=== PATIENT | female | born 1955 | race Caucasian/White ===

== ENCOUNTER → 2018-05-03 16:02 | Outpatient (CLI) | payer OTHER, SELFPAY ==
[2018-04-04 13:46] VITALS: BMI 27.4
--- NOTE | 2018-05-03 16:17 | BI_ITS ---
MAMMOGRAPHY - BILATERAL SCREENING REASON FOR EXAM: Female, 62 years old. Routine annual screening examination. PERTINENT HISTORY: Non-contributory. TECHNIQUE: Digital bilateral breast charity (3D mammographic acquisition) in the CC and MLO projections. 2-D mediolateral oblique (MLO) and craniocaudad (CC) views of both breasts were obtained. CAD: Full Field Digital Mammography with Computer Added Detection was performed. COMPARISON: Comparison is made with prior study dated November 17, 2016 and March 14, 2015. FINDINGS: Breast Composition: The breasts are heterogeneously dense, which may obscure small masses. There are no dominant masses or suspicious calcifications. Stable small bilateral axillary lymph nodes. No other significant abnormalities are identified. There has been no significant change since the prior study. BI/SCREENING MAMM (CAD), BILAT IMPRESSION: Stable bilateral screening mammogram. Yearly follow-up mammogram recommended. (A) ASSESSMENT CATEGORY: BIRADS Category 2: Benign. A letter regarding these results will be sent to the patient by the facility within 30 days. Approximately 10% of breast cancers are not detected by mammography. A normal mammogram should not delay biopsy of a clinically suspicious abnormality. [id number] Electronically Signed: Wenceslao Currie MD at 8:13 EST Tel [phone], Service support ,
== END ==
PROVIDERS: Family Provider Family Medicine; PCP Family Medicine; Referring Provider Nurse Practitioner Family; Visit Provider Nurse Practitioner Family
DX: Z12.31 Encounter for screening mammogram for malignant neoplasm of breast (principal)
CPT/HCPCS: 77063; 77067

== ENCOUNTER 2020-12-15 07:04 | Day surgery (SDC) | payer OTHER, SELFPAY ==
[2018-04-04 13:46] VITALS: BMI 27.4
--- NOTE | 2020-12-08 12:32 | EKG12_ITS ---
Test Reason : PREOP Blood Pressure : / mmHG Vent. Rate : 052 BPM Atrial Rate : 052 BPM P-R Int : 180 ms QRS Dur : 082 ms QT Int : 428 ms P-R-T Axes : 054 027 038 degrees QTc Int : 398 ms Sinus bradycardia Otherwise normal ECG Confirmed by ENOC ALLEN, NEO ([id number]), editorial specialist NAVARRO NIELSON ([id number]) on 12/09/2020 10:45:40 AM Referred By: Eloisa Curran Confirmed By:NEO STUBBS MD
[2020-12-08 13:47] LABS: Hematocrit 41.8 % (37-47); Hemoglobin 13.3 g/dL (12.0-15.0); Mean Corp Hgb Conc 31.8 g/dL (32-36); Mean Corpuscular Hgb 28.9 pg (27.0-32.0); Mean Corpuscular Volume 90.7 fL (81-99); Mean Platelet Vol. 9.9 fl (6.2-12.0); Platelet Count 217 K/mm3 (150-450); RBC Distribution Width CV 13.1 % (11.6-14.6); RBC Distribution Width SD 43.4 fl (35.1-43.9); Red Blood Count 4.61 M/mm3 (4.2-5.4); White Blood Count 6.6 K/mm3 (4.4-11.0)
[2020-12-08 13:54] LABS: Partial Thromboplast Time 27.5 Seconds (24.1-36.2)
[2020-12-08 14:22] LABS: Anion Gap 3 (5-15); BUN 16 mg/dL (7-18); BUN/Creat Ratio 21.7 RATIO (10-20); Calcium,Total 9.3 mg/dL (8.5-10.1); Chloride 105 mmol/L (98-107); Creatinine, Serum 0.74 mg/dL (0.55-1.02); EST Glomerular Filtration Rate 85 mL/min (>60); Est Glom Filt Rate - Afr Amer 102 mL/min (>60); Glucose 106 mg/dL (74-106); Sodium Level 141 mmol/L (136-145)
[2020-12-15] VITALS (11 sets, daily range): BP systolic 111–147; BP diastolic 63–85; PULSE 56–79; RESP 16–18; TEMP 36.3–37.2; O2SAT 95–100; BMI 52.7
[2020-12-15] MEDS: Lactated Ringers 1,000 ML 100 ML IV (07:25)
--- NOTE | 2020-12-15 08:19 | PCM.OPRPT ---
Problems Associated Problem List Diagnoses (1) Cystocele, midline: (2) Vaginal vault prolapse: Report of Operation Date of Procedure: 12/15/20 Pre-Operative Diagnosis: cystocele, vaginal vault prolapse Post-Operative Diagnosis: cystocele, no vault prolapse Surgery/Procedure Performed:: Anterior repair with dermis, cystoscopy with bilateral ureteral catheter insertion Surgeon: Eloisa Curran Type of Anesthesia: General Estimated Blood Loss (mL): 15cc Description of Procedure: The patient is a 65-year-old female who had previously undergone an abdominal sacrocolpopexy with anterior repair and hysterectomy. She presented with recurrence of her cystocele. We proceeded with evaluation with urodynamics and cystoscopy. She decided to proceed with surgical intervention after using a pessary for quite some time. Informed consent was obtained. Patient was taken the operating room and placed on the operating room table. Anesthesia monitored the head, neck, airway, IV access and vital signs throughout the case. Once anesthesia was appropriate ministered the patient was placed into dorsal lithotomy position was prepped and draped in usual sterile fashion. A 16 [place] Yeboah catheter was inserted and the bladder was drained. The anterior vaginal wall was isolated and injected submucosally 1% lidocaine with epinephrine for hydrostatic dissection and hemostatic control. A vertical midline incision approximately 2 cm in length was made. Sharp and blunt dissection was performed on either side all the way to the lateral aspect of the white line. Secondary to the patient's previous surgical intervention, most of this dissection was sharply performed secondary to scar tissue. Upon further evaluation the defect was determined to be distally located and the vaginal vault repair remained intact. There is a significant amount of scar tissue in the area of the vault secondary to the sacrocolpopexy. Dissection was performed around the area of the cystocele recurrence. Because of the scar tissue and difficulty in dissection, the Yeboah catheter was removed, the cystoscope was inserted through the urethra under direct visualization. The ureteral orifices were identified and gently intubated bilaterally with a Pollick catheter. Insertion was to 20 cm without difficulty bilaterally. At this time the cystoscope was removed and the Yeboah catheter was reinserted. The ureteral catheters were left to straight drain alongside the Yeboah. At this time the dissection of the cystocele defect was completed. A piece of dermis was cut to size and sutured in interrupted fashion using 2-0 PDS proximally and 3-0 PDS more distally at the area of the bladder neck. At this time, when the dermis was fully positioned and secured bilaterally, the Yeboah catheter was removed and the cystoscope was inserted. There were no injuries identified, no area of erythema or hemorrhage. Bilateral ureteral stents remained draining in good position with no evidence of ureteral injury. At this time the cystoscope was removed, the ureteral stents were removed, and the Yeboah catheter was reinserted. The midline incision was minimally trimmed and closed using running interlocking 2-0 Vicryl. Patient's vagina was then packed with estrogen cream and vaginal packing. She was awakened and taken to the recovery room in good condition. There were no complications during this procedure. Grafts/Implants Used: Dermis Complications none Admit VTE Documentation VTE Present on Admission: Yes VTE Mechan Device Prophylaxis: SCD's VTE Pharm Prophylaxis ordered?: Yes
[2020-12-15] MEDS: Cefazolin 2 GM in 0.9% Normal Saline 100 ML IV (08:23)
[2020-12-15] MEDS: Lidocaine 1% /Epi 1:100 (50ml) 50 ML VIAL (09:57)
[2020-12-15] MEDS: Estrogens,Conj. 1 Tube 1 DOSE (09:57)
--- NOTE | 2020-12-15 10:21 | PCM.DC ---
Discharge Instructions Diet Discharge Diet: No restrictions Activity Discharge Activity: May Shower May resume sexual activity in: 8 weeks Lifting Restrictions: 5 pounds Dressing / Incision Call your doctor if your incision/area has: Continuous Slow Oozing, Sudden Increased Bleeding, Increased Pain/ Swelling and Foul Smelling Discharge Call your doctor if you observe: Fever of 101 or Higher, Inability to urinate, Inability to have a bowel movement, Calf discomfort and Uncontrolled pain Additional Dressing/Incision Instructions:: No strenuous activity, no exercising, no sexual activity, no vacuuming, no driving for 2 weeks Follow Up Care Please Follow Up With: Eloisa Curran MD When: Call office for appointment Test Results: Test results from this visit will be discussed in further detail at your follow-up appointment, if applicable. Discharge Plan Admission Attending Provider: Eloisa Curran Primary Care Provider: Pili Alexis Primary Discharge Orders/Prescriptions Prescriptions: New hydrocodone-acetaminophen [hydrocodone-acetaminophen] 1 TABLET tablet 1 tab PO Q4H PRN PRN (Reason: Pain) 7 Days Qty: 20 RF: 0 cephalexin [cephalexin] 500 MG capsule 500 mg PO Q12 3 Days Qty: 6 RF: 0 Continued omega 0-gax-hem-fish oil [Fish Oil] 1,000 mg (120 mg-180 mg) capsule 1 cap PO DAILY RF: 0 cholecalciferol (vitamin D3) 2,000 unit capsule 2,000 unit PO DAILY RF: 0 melatonin 5 mg tablet 5 mg PO HS PRN (Reason: Sleep) RF: 0 zolpidem 6.25 mg tablet,ext release multiphase 6.25 mg PO QHS PRN (Reason: Sleep) RF: 0 levetiracetam 500 mg tablet 1,000 mg PO BID RF: 0 multivitamin Tablet 1 tab PO DAILY RF: 0 famotidine 20 mg tablet 20 mg PO DAILY RF: 0 estradiol 0.01 % (0.1 mg/gram) cream 1 applic VAGINAL .2-3 TIMES WEEKLY RF: 0 Referrals / Follow Up: Care Physician,No Primary [Primary Care Provider] - Disposition Disposition (needs filled in before D/C Order can be placed): Home, Self Care
[2020-12-15] MEDS: Dextrose 5%-Lactated Ringers 1,000 ML 100 ML IV ×2 (12:07→21:05)
[2020-12-15] MEDS: Cefazolin 1 GM/50 ML BAG IV ×2 (13:49→21:07)
[2020-12-15] MEDS: Docusate Sodium 100 MG Capsule PO (19:54)
[2020-12-15] MEDS: levETIRAcetam 1,000 MG Tablet 1000 MG PO (19:54)
[2020-12-16] VITALS: BP 143/79; PULSE 53; RESP 16; TEMP 36.6; O2SAT 95
[2020-12-16 00:03] VITALS: BMI 52.7
[2020-12-16] MEDS: Zolpidem Tartrate 5 MG Tablet PO (00:07)
[2020-12-16 04:15] VITALS: BP 131/73; PULSE 59; RESP 16; TEMP 36.8; O2SAT 98
[2020-12-16 04:18] VITALS: BMI 52.7
[2020-12-16] MEDS: Cefazolin 1 GM/50 ML BAG IV (05:11)
--- NOTE | 2020-12-16 07:22 | PCS.PANDOC ---
PANDEMIC DOCUMENTATION INITIATED: Date: 12/14/2020 Time: 190
--- NOTE | 2020-12-16 08:29 | PCM.PROGNOTE ---
Subjective Subjective Sitting up in bed, getting ready to eat breakfast. Doing well! No nausea or vomiting. Pain is minimal. No significant bleeding. Ambulating without difficulty. No issues overnight. Objective Data Objective Data Vital Signs: Vital Signs Temp Pulse Resp BP Pulse Ox 98.2 F 59 L 16 131/73 H 98 12/16/20 04:15 12/16/20 04:15 12/16/20 04:15 12/16/20 04:15 12/16/20 04:15 Oxygen Delivery Method Room Air Weight: 135 kg Body Mass Index (BMI) 52.7 Intake & Output: Intake and Output for Last 24 Hours 12/14/20 12/15/20 12/16/20 23:59 23:59 23:59 Intake Total 2956.67 / 2956.67 1106.67 / 1106.67 Output Total 3450 / 3450 1325 / 1325 Balance -493.33 / -493.33 -218.33 / -218.33 Lab / Micro Data Result Diagrams: 12/08/20 12:55 12/08/20 12:55 Physical Exam Const alert, oriented x3 and no apparent distress HEENT normocephalic, head/scalp atraumatic and hearing grossly normal bilaterally Eyes conjunctivae normal and no scleral icterus Neck supple General: trachea midline Chest Chest: symmetrical chest wall rise Resp normal air movement, no retractions and no use of accessory muscles Cardio regular rate GI soft to palpation, non-tender and non-distended external exam normal Narrative: solorzano draining clear yellow. solorzano and packing removed without issue or concern. Back/Spine no CVA tenderness Extremity normal to inspection Extremity Narrative: SCD's in place Skin no rashes or lesions noted, no wounds, skin turgor normal, no jaundice, no petechiae and no mottling Neuro oriented x3, CN's II-XII intact bilaterally and moves all extremities Psych mental status grossly normal, thought process normal and cooperative Assessment & Plan Assessment/Plan (1) Cystocele, midline: PLAN: trial of void and home today
[2020-12-16] MEDS: Dextrose 5%-Lactated Ringers 1,000 ML 100 ML IV (09:05)
[2020-12-16 09:41] VITALS: BP 109/55; PULSE 72; RESP 16; TEMP 36.7; O2SAT 100
[2020-12-16] MEDS: levETIRAcetam 1,000 MG Tablet 1000 MG PO (09:47)
[2020-12-16] MEDS: Famotidine 20 MG Tablet PO (09:47)
[2020-12-16] MEDS: Enoxaparin 40 MG/0.4 ML Syringe SC (09:47)
[2020-12-16] MEDS: Docusate Sodium 100 MG Capsule PO (09:50)
[2020-12-16 12:38] VITALS: BMI 52.7
--- NOTE | 2020-12-16 12:47 | PHA.DC.MC ---
Pharmacy Service has performed discharge medication reconciliation and counseling for this patient. 1. CEPHALEXIN 500MG PO Q12 X 3 DAYS 2. NORCO 5/325MG PO Q4H PRN PAIN X 7 DAYS The patient's discharge medication list was reviewed for discrepancies and discrepancies were resolved. Home Medications cholecalciferol (vitamin D3) 50 mcg (2,000 unit) capsule 2,000 unit PO DAILY 04/04/18 levetiracetam 500 mg tablet 1,000 mg PO BID tab 04/04/18 melatonin 5 mg tablet 5 mg PO HS PRN 04/04/18 omega 5-kii-okg-fish oil 1,000 mg (120 mg-180 mg) capsule 1 cap PO DAILY cap 04/04/18 zolpidem 6.25 mg tablet,extended release,multiphase 6.25 mg PO QHS PRN 04/04/18 estradiol 1 applic VAGINAL .2-3 TIMES WEEKLY 12/08/20 famotidine 20 mg PO DAILY 12/08/20 multivitamin 1 tab PO DAILY 12/08/20 cephalexin 500 mg PO Q12 3 Days #6 capsule 12/15/20 hydrocodone-acetaminophen 1 tab PO Q4H PRN PRN 7 Days #20 tablet 12/15/20 The patient was counseled on the following discharge medications and changes in medications for homegoing were reviewed. The Reason for Use, instructions for use, and potential side effects were reviewed for all new medications. The patient's questions regarding all of their medications were answered. The patient was able to verbally demonstrate an understanding of their discharge medications.
[2020-12-16 12:50] VITALS: BP 117/68; PULSE 66; RESP 18; TEMP 36.8; O2SAT 99
== END 2020-12-16 13:09 | disposition home or self-care (01) ==
LOC: SDC 07:06 → AC 07:07 → MS3 10:33
PROVIDERS: Referring Provider Urology; Visit Provider Urology
PROC: (CPT 57260; principal; 2020-12-15 07:45)
DX: N81.11 Cystocele, midline (principal); J45.909 Unspecified asthma, uncomplicated; M19.90 Unspecified osteoarthritis, unspecified site; K21.9 Gastro-esophageal reflux disease without esophagitis; I10 Essential (primary) hypertension; Z79.899 Other long term (current) drug therapy
CPT/HCPCS: 00942; 57240; 36415; 80048; 85027; 85730; 93005; 99251; J7120; G0463; J2405